=== PATIENT | female | born 1985 ===

== ENCOUNTER → 2020-09-17 | Outpatient (CLI) | payer BC ==
--- NOTE | 2020-09-17 15:45 | XR ---
EXAMINATION TYPE: XR cervical spine comp DATE OF EXAM: 09/17/2020 COMPARISON: None HISTORY: Cervical radiculopathy TECHNIQUE: 5 view cervical spine FINDINGS: Prevertebral space is normal. Vertebral body heights are preserved. Disc heights are preser marie. Posterior spinal lamellar line is intact. Foramen are patent. Submental vertex view was obtained for evaluation of the odontoid. IMPRESSION: 1. Normal 5 view cervical spine.
== END | disposition home or self-care (01) ==
LOC: RADXRMAIN 14:51
PROVIDERS: ATTEND Family Medicine
DX: M54.12 Radiculopathy, cervical region (principal)
CPT/HCPCS: 72050

== ENCOUNTER 2023-05-25 17:31 | Emergency (ER) | payer OTHER ==
[2023-05-25 18:12] VITALS: TEMP 98.5
--- NOTE | 2023-05-25 18:48 | ED ---
General Adult HPI - General Chief complaint: Recheck/Abnormal Lab/Rx Stated complaint: anemia Time Seen by Provider: 05/25/23 17:40 Source: EMS Mode of arrival: EMS - History of Present Illness Initial comments: 38-year-old female presents to the emergency department as a transfer from [facility]. She went into their facility with reported pain to her left lower leg. She had an ultrasound performed which demonstrated a superficial thrombophlebitis. She was placed on doxycycline and told to take ibuprofen. Laboratory studies were conducted by the staff and the patient was found to be anemic. Hemoglobin was 6.1 and was confirmed by repeat. She denies any hematemesis, hematochezia or melena. Denies hematuria. Does report to heavy vaginal bleeding however states that her menstrual cycles have been like this for as long as she can remember. She did have an IUD placed by Dr. Reeder at the beginning of this month to help control her heavy bleeding. Her primary care doctor has been watching her hemoglobin levels because of the heavy bleeding. She was never told that she was anemic. States her last laboratory studies were probably 1 to 2 months ago. She is on her sixth day of her menstrual cycle at this time and states that the bleeding is considerably low. She denies any abdominal pain. No history of any blood transfusions. D enies rectal bleeding. No other alleviating, precipitating or modifying factors - Related Data Previous Rx's Medication Instructions Recorded Ferrous Sulfate [Iron] 325 mg PO DAILY #30 tablet 05/25/23 Allergies Allergy/AdvReac Type Severity Reaction Status Date / Time Penicillins Allergy Anaphylaxis Verified 05/25/23 17:40 Review of Systems ROS Statement: Those systems with pertinent positive or pertinent negative responses have been documented in the HPI. ROS Other: All systems not noted in ROS Statement are negative. Past Medical History Past Medical History: Hypertension Additional Past Medical History / Comment(s): cellulitis History of Any Multi-Drug Resistant Organisms: None Reported Past Surgical History: Section, Heart Catheterization Past Psychological History: No Psychological Hx Reported Smoking Status: Current every day smoker Past Alcohol Use History: Rare Past Drug Use History: None Reported General Exam General appearance: alert, in no apparent distress Head exam: Present: atraumatic, normocephalic, normal inspection Eye exam: Present: normal appearance, PERRL, EOMI. Absent: scleral icterus, conjunctival injection, periorbital swelling ENT exam: Present: normal exam, mucous membranes moist Neck exam: Present: normal inspection. Absent: tenderness, meningismus, lymphadenopathy Respiratory exam: Present: normal lung sounds bilaterally. Absent: respiratory distress, wheezes, rales, rhonchi, stridor Cardiovascular Exam: Present: regular rate, normal rhythm, normal heart sounds. Absent: systolic murmur, diastolic murmur, rubs, gallop, clicks GI/Abdominal exam: Present: soft, normal bowel sounds. Absent: distended, tenderness, guarding, rebound, rigid External exam: Present: normal external exam Speculum exam: Present: other (No visible vaginal bleeding at this time. Strings within appropriate position) Extremities exam: Present: normal inspection, full ROM, normal capillary refill. Absent: tenderness, pedal edema, joint swelling, calf tenderness Back exam: Present: normal inspection Neurological exam: Present: alert, oriented X3, CN II-XII intact Psychiatric exam: Present: normal affect, normal mood Skin exam: Present: warm, dry, intact, normal color. Absent: rash Course Vital Signs 05/25/23 05/25/23 17:36 19:35 Temperature 98.5 F Pulse Rate 96 117 H Respiratory 16 19 Rate Blood Pressure 172/94 146/81 O2 Sat by Pulse 97 98 Oximetry Medical Decision Making - Medical Decision Making Was pt. sent in by a medical professional or institution ([facility] Guillen, [facility]PA[facility] [employer], urgent care, hospital, or [facility]...) When possible be specific @ -yes, patient sent from [facility] Did you speak to anyone other than the patient for history (EMS, parent, family, police, friend...)? What history was obtained from this source @ -spoke with transferring physician Did you review nursing and triage notes (agree or disagree)? Why? @ -I reviewed and agree with nursing and triage notes Were old charts reviewed (outside hosp., previous admission, EMS record, old EKG, old radiological studies, urgent care reports/EKG's, [facility] records)? Report findings @ -I reviewed laboratory studies from [facility] Differential Diagnosis (chest pain, altered mental status, abdominal pain women, abdominal pain men, vaginal bleeding, weakness, fever, dyspnea, syncope, headache, dizziness, GI bleed, back pain, seizure, CVA, palpatations, mental health, musculoskeletal)? @ -Differential Vaginal Bleeding: Spontaneous , threatened , molar , ectopic , bloody show, incompetent cervix, abruptioplacenta, placenta previa, uterine rupture, dysfunctional uterine bleeding, hemorrhage, uterine fibroids, this is not meant to be an all-inclusive list. EKG interpreted by me (3pts min.). @ -Not done X-rays interpreted by me (1pt min.). @ -None done CT interpreted by me (1pt min.). @ -None done U/S interpreted by me (1pt. min.). @ -None done What testing was considered but not performed or refused? (CT, X-rays, U/S, labs)? Why? @ -None What meds were considered but not given or refused? Why? @ -None Did you discuss the management of the patient with other professionals (professionals i.e. , PA, REPAIR WEAVER, lab, RT, psych nurse, social science teacher, retail buyer, teacher, conservation science officer, case sealer)? Give summary @ -I spoke with Dr. Lux - patient may be discharged after transfusion as she has no active vaginal bleeding at this time. He does recommend that the patient be placed on iron supplements. Patient needs to follow up with her OBGYN Was smoking cessation discussed for >3mins.? @ -No Was critical care preformed (if so, how long)? @ -yes, 35 minutes for blood transfusion Were there social determinants of health that impacted care today? How? (Homelessness, low income, unemployed, alcoholism, drug addiction, transportation, low edu. Level, literacy, decrease access to med. care, nursing home, rehab)? @ -No Was there de-escalation of care discussed even if they declined (Discuss DNR or withdrawal of care, Hospice)? DNR status @ -No What co-morbidities impacted this encounter? (DM, HTN, Smoking, COPD, CAD, Cancer, CVA, ARF, Chemo, Hep., AIDS, mental health diagnosis, sleep apnea, morbid obesity)? @ -heavy vaginal bleeding Was patient admitted / discharged? Hospital course, mention meds given and route, prescriptions, significant lab abnormalities, going to OR and other pertinent info. @ -Upon arrival patient was seen and evaluated in room 3. Thorough history and physical exam was performed. Pelvic exam was performed which demonstrates no active bleeding at this time. Patient has no pain. Patient is transfused a unit of blood. I did speak with Dr. Lux. As patient has no active bleeding, she can be discharged to follow up with her OBGYN/primary care. Repeat blood work to be completed on Sunday. Results sent to PCP. Patient may require another unit of blood and therefore must follow up. Dr. Lux is recommend that the patient started on iron supplementation as she does have a low MCV. If patient has any new or worsening symptoms she should return to the emergency department. Patient was agreeable to this plan was discharged in stable condition Undiagnosed new problem with uncertain prognosis? @ -No Drug Therapy requiring intensive monitoring for toxicity (Heparin, Nitro, Insulin, Cardizem)? @ -Blood product transfusion Were any procedures done? @ -No Diagnosis/symptom? @ -Acute anemia, chronic vaginal bleeding Acute, or Chronic, or Acute on Chronic? @ -Acute on chronic Uncomplicated (without systemic symptoms) or Complicated (systemic symptoms)? @ -Complicated Side effects of treatment? @ -No Exacerbation, Progression, or Severe Exacerbation? @ -No Poses a threat to life or bodily function? How? (Chest pain, USA, PR, pneumonia, PE, COPD, DKA, ARF, appy, cholecystitis, CVA, Diverticulitis, Homicidal, Suicidal, threat to staff... and all critical care pts) @ -Yes as patient was severely anemic Disposition Clinical Impression: Microcytic anemia, History of heavy vaginal bleeding, Leg pain Disposition: HOME SELF-CARE Condition: Stable Instructions (If sedation given, give patient instructions): Anemia (ED) Additional Instructions: Please follow-up at the outpatient lab tomorrow to have your blood drawn. They are open from 8 AM to noon. Your results will be sent to your primary care doctor. Please start taking the iron supplement daily and return for any new or worsening symptoms. The iron supplement may cause some constipation Prescriptions: Ferrous Sulfate [Iron] 325 mg PO DAILY #30 tablet Is patient prescribed a controlled substance at d/c from ED?: No Referrals: Anna Gary MD [Primary Care Provider] - 1-2 days Time of Disposition: 19:19
[2023-05-25 20:00] VITALS: BP 146/81; PULSE 117; RESP 19
== END 2023-05-25 19:41 | disposition home or self-care (01) ==
LOC: EC 17:31
DX: D50.9 Iron deficiency anemia, unspecified (principal); M79.662 Pain in left lower leg; Z87.42 Personal history of other diseases of the female genital tract; F17.200 Nicotine dependence, unspecified, uncomplicated; Z88.0 Allergy status to penicillin
CPT/HCPCS: 99284

== ENCOUNTER → 2023-05-26 | Outpatient (CLI) | payer OTHER ==
[2023-05-26 14:19] LABS: Basophils # (M) 0 X 10*3/uL (0.00-0.10); Eosinophils # (M) 0.07 X 10*3/uL (0.04-0.35); HCT 24.4 % (37.2-46.3); HGB 6.9 g/dL (12.0-15.0); Lymphocytes # (M) 1.61 X 10*3/uL (0.90-5.00); MCH 20.9 pg (27.0-32.0); MCHC 28.3 g/dL (32.0-37.0); MCV 73.9 FL (80.0-97.0); Mean Platelet Volume 9.6 FL (9.5-12.2); Metamyelocytes % 1 % (0-0); Microcytosis (M) 2+; Monocytes # (M) 0.15 X 10*3/uL (0.20-1.00); NRBC Per 100 WBC 0.03 X 10*3/uL (0.00-0.01); Neutrophils # (M) 5.42 X 10*3/uL (1.80-7.70); Neutrophils % (M) 74 %; Platelet Count 359 X 10*3/uL (140-440); RDW 18.6 % (11.5-14.5); WBC 7.33 X 10*3/uL (4.50-10.00)
== END | disposition home or self-care (01) ==
LOC: LABWHC1 09:13
PROVIDERS: ATTEND Family Medicine
DX: D64.9 Anemia, unspecified (principal)
CPT/HCPCS: 36415; 85025